=== PATIENT | female | born 1975 | race Hispanic/Latino ===

== ENCOUNTER → 2018-04-25 | Day surgery (SDC) | payer BC ==
[2018-04-15 09:40] VITALS: BMI 23.9
[~2018-04-25] MED LIST: Bupivacaine HCl 0.25% PF (30 ml) Inj ONE; HYDROmorphone 0.5 mg/0.5 ml ISec IVP PRN; Lidocaine/Epinephrine 1% 1:100000 10 ML IJ ONE; Midazolam 2 MG/2 ML VIAL ONE; Propofol 10 mg/ml Inj (20 ML) ONE; Rocuronium 10 mg/ml (5 ml) ONE; ceFAZolin 1 gm in NS 2 GM/200 ML BAG IVPB ONE; ePHEDrine 50 mg/ml Inj ONE
--- NOTE | 2018-04-25 13:06 | PCM.SURG1 ---
Surgeon's Initial Post Op Note - Surgeon's Notes Surgeon: Jessie Granados MD Sanitation Lead: VIPUL Osman Type of Anesthesia: General Endo Pre-Operative Diagnosis: Right breast Atypical ductal Hyperplasia Operative Findings: Right breast Atypical ductal Hyperplasia Post-Operative Diagnosis: Right breast Atypical ductal Hyperplasia Operation Performed: Preop needle localization and Right breast lumpectomy Specimen/Specimens Removed: Right breast inner upper quadrant lumpectomy Estimated Blood Loss: EBL {In ML}: 10 Blood Products Given: N/A Drains Used: No Drains Post-Op Condition: Good Date of Surgery/Procedure: 04/25/18 Time of Surgery/Procedure: 13:06
[2018-04-25 14:04] VITALS: O2SAT 98
[2018-04-25 15:34] VITALS: BP 92/57; PULSE 60; RESP 18; TEMP 98
--- NOTE | 2018-04-25 17:11 | MAM ---
HISTORY: Prior indeterminate microcalcifications right breast status post double right breast stereotactic guided biopsy revealing atypical ductal hyperplasia and associated microcalcifications in 1 location and focal flat epithelial atypia with associated microcalcification in another. TECHNIQUE/FINDINGS: Following full discussion of risks and benefits of the procedure with the patient, written consent was freely obtained. Timeout was called for wire needle localization procedure for 2 locations close together at the right upper outer quadrant breast. The breast was placed in spot compression in medial lateral projection with a grid in place and both stereotactic biopsy clips were identified. Overlying skin was marked for procedure. Max sterile barrier protection was provided the skin overlying the clips all initial mammography which set markings of the grid over the clips. ThreeCc of 1 percent lidocaine was utilized for skin anesthesia and deep tissue anesthesia. A modified Kopan's needle wire assembly was placed between both biopsy clips. The craniocaudal projection was obtained and demonstrated the needle localization wire to be in good position. The wire or subsequently deployed and secured at the skin with confirmation mammography performed in both craniocaudal and mediolateral projections once again. Patient tolerated procedure well with no complications. Postoperative specimen radiograph demonstrates both stereotactic clips within the specimen with good margins. IMPRESSION: Status post successful preoperative needle wire localization of right breast lesions under mammographic control, as above. Both stereotactic clips were identified within the specimen radiograph which was immediately communicated to Dr. Granados in the operating room by telephone 04/25/2018.
--- NOTE | 2018-04-26 05:26 | OP ---
PROCEDURE DATE: 04/25/2018 PREOPERATIVE DIAGNOSIS: Right breast atypical ductal hyperplasia. POSTOPERATIVE DIAGNOSIS: Right breast atypical ductal hyperplasia. PROCEDURE DONE: Preoperative needle placement and right breast lumpectomy. SURGEON: The procedure was done by John merlos MD. WEB ART DIRECTOR: VIPUL Osman. TYPE OF ANESTHESIA: General endotracheal tube anesthesia. ESTIMATED BLOOD LOSS: Around 10 mL. DRAINS: None. PATHOLOGY: The right breast lump was sent for the pathology for radiological confirmation as well as final pathology. COMPLICATIONS: None. INTRAOPERATIVE FINDINGS: The patient had right inner mid quadrant wire placement at the site of atypical ductal hyperplasia. DESCRIPTION OF PROCEDURE: On intraoperative steps, this is a 42-year-old female who was diagnosed with atypical ductal hyperplasia, and the patient was consented for preop needle placement and right breast lumpectomy. The patient was brought to the OR, placed supine on the operating table. After induction of the anesthesia, the right breast was prepped and draped in the usual sterile fashion. A curvilinear incision was made surrounding the right inner periareolar area and after incising the skin and subcutaneous tissue, the medial and lateral flaps were created. The superior and inferior dissection was done, and the wire was delivered into the wound. The dissection was carried down underneath the nipple-areolar region. Now, the deeper dissection was done upto the pectoral fascia in all the directions. The breast lump was completely excised from the surrounding normal breast tissue. It was sent off the table for radiological confirmation. The radiology confirmed that the clip was in the specimen and there was good margin. After that, the wound was irrigated. Hemostasis was achieved. The wound was closed in 2 layers, the subcutaneous with 2-0 Vicryl and skin with 4-0 Monocryl, and dry sterile dressing was applied. The patient tolerated the procedure well. Count of the instrument and gauze was correct. There were no apparent complications. The patient was reversed from anesthesia and sent to the postanesthesia care unit in stable condition. John Granados MD
== END | disposition home or self-care (01) ==
LOC: C.SDS 06:42
PROVIDERS: ATTEND Surgery Surgical Critical Care
DX: N60.91 Unspecified benign mammary dysplasia of right breast (principal); R92.8 Other abnormal and inconclusive findings on diagnostic imaging of breast
CPT/HCPCS: 19281; 19301; 88305; J0690; J1100; J1885; J2001; J2250; J2405; J2704; J3010

== ENCOUNTER → 2019-03-10 | Outpatient (CLI) | payer BC | END | disposition home or self-care (01) | LOC: C.PAT 07:58 | DX: N93.9 Abnormal uterine and vaginal bleeding, unspecified (principal) ==

== ENCOUNTER 2019-03-13 07:03 | Day surgery (SDC) | payer BC ==
[2019-03-10 07:49] VITALS: BMI 23.3
[2019-03-13] MEDS ORDERED: HYDROmorphone 0.5 mg/0.5 ml ISec IVP PRN (08:45)
[2019-03-13] MEDS ORDERED: Propofol 10 mg/ml Inj (20 ML) ONE (08:56)
[2019-03-13] MEDS ORDERED: Midazolam 2 MG/2 ML VIAL ONE (08:56)
[2019-03-13] MEDS ORDERED: Esmolol 100 mg/10ml Inj IV ONE (09:30)
[2019-03-13 10:16] VITALS: O2SAT 100
[2019-03-13 11:23] VITALS: RESP 18
[2019-03-13 11:51] VITALS: BP 96/56; PULSE 56; TEMP 97.4
--- NOTE | 2019-03-15 14:04 | OP ---
PROCEDURE DATE: 03/13/2019 PREOPERATIVE DIAGNOSES: Abnormal uterine bleeding, thickened endometrial stripe. POSTOPERATIVE DIAGNOSES: Abnormal uterine bleeding, thickened endometrial stripe. PROCEDURES PERFORMED: Hysteroscopic myomectomy, dilation and curettage. SPECIMENS: Endocervical curetting, endometrial curetting, submucosal myoma type lesion. ESTIMATED BLOOD LOSS: 5 mL. BLOOD PRODUCTS: None. COMPLICATIONS: None. ANESTHESIA: General. SURGEON: Viridiana Messer MD STATISTICAL PROGRAMMER: None. OPERATIVE FINDINGS: Retroverted uterus, 8 to 10 weeks' size. Uterus sounded to 7 cm. Bilateral ostia visualized. Mass noted anteriorly small within the endometrial cavity. DESCRIPTION OF PROCEDURE: The patient was taken to the operating room, where she was given general anesthesia. Once it was found to be adequate, she was placed on the operating table in dorsal supine position with legs supported using stirrups. The patient was then prepped and draped in the normal sterile fashion. A time-out was performed to confirm correct patient and correct procedure. Bimanual exam was performed with the above-mentioned findings. A Duncan retractor was placed in the anterior and posterior fornix of the vagina. A single-tooth tenaculum was placed in the anterior lip of the cervix. The cervix appeared stenotic. The cervix was sequentially dilated after endocervical curettings were obtained with a Kevorkian curette and sent to Pathology on [facility]. The uterus was then sounded. The cervix was sequentially dilated to allow for introduction of the hysteroscope under direct visualization and using normal saline as the distention media operative findings above. The mass was carefully resected using MyoSure device. The hysteroscope was removed. Gentle curettage was done. The hysteroscope was then reintroduced. There was good hemostasis noted. All instruments were removed. There was good hemostasis at the tenaculum puncture site. At the end of the procedure, all needle, sponge and instrument counts were noted to be correct x2. The patient tolerated the procedure well and was transferred to the recovery room in stable condition. Viridiana Messer MD
== END 2019-03-13 11:58 | disposition home or self-care (01) ==
LOC: C.SDS 07:03
PROVIDERS: ATTEND Obstetrics & Gynecology
DX: N93.9 Abnormal uterine and vaginal bleeding, unspecified (principal); D25.0 Submucous leiomyoma of uterus
CPT/HCPCS: 58561; 88305; J2250; J2704; J3010